=== PATIENT | female | born 1955 | race Caucasian/White ===

== ENCOUNTER 2025-01-27 08:00 | Outpatient (AMB) | payer OTHER, SELFPAY ==
--- NOTE | 2025-01-27 08:12 | A.OFFVIS_ITS ---
Intake Visit Reasons: urinary incontinence/nocturia/PVR Intake Note: New patient presents today for initial visit for urinary incontinnce/Nocturia Urology Medication:none Blood Thinner:none Antibiotic Allergies:Sulfa PVR:10ml Allergies adhesive tape Allergy (Mild, Verified 01/27/25 08:13) Agitated chromium Allergy (Mild, Verified 01/27/25 08:13) Agitated Sulfa (Sulfonamide Antibiotics) Allergy (Mild, Verified 01/27/25 08:13) Rash gadolinium containing agents Allergy (Mild, Uncoded 01/15/25 11:22) Agitated david Allergy (Mild, Uncoded 01/15/25 11:22) Agitated HPI Comments Details: 01/27/25--Elizabeth is a 69 year old female with complaints of urinary incontinence here as a new patient evaluation. The was seen last year by Urology group of [facility] and I received notes from their office. However the patient states that she was seen there on 1 visit and did not return because she had a less than optimal experience and was told that Dr. Garcia was retiring. She states that she has had symptoms of urinary incontinence for several years she feels that it runs in her family because her grandmother and mother also have this problem. She has had 2 C sections. She is currently not on any bladder medication and has not been on any in the past. She describes symptoms associated with urgency as well as coughing and stress. The patient is overweight (comorbidity for urinary incontinence) and states that she has 2 bad knees and this limits her ability to be active impacting her ability to lose weight. I have discussed further evaluation with urodynamics. I have discussed conditions that impact urinary incontinence to include but not limited to body habitus, aging, postmenopausal changes. She denies frequent UTIs. Results: Renal ultrasound report-05/22/2024 kidneys no nephrolithiasis or hydronephrosis postvoid bladder volume 0 mL Review of Systems Const All systems reviewed & are unremarkable except as noted in HPI and below Reports no additional complaints Eyes Reports no additional complaints ENT Reports no additional complaints Card Reports no additional complaints Resp Reports no additional complaints GI Reports no additional complaints Reports as per HPI Musc Reports no additional complaints Skin/Breast Reports system reviewed and no additional complaints, except as documented Neuro Reports no additional complaints Psych Reports no additional complaints Endo Reports no additional complaints Conner/Lymph Reports no additional complaints Aller/Immun Reports no additional complaints Physical Exam Const General: cooperative, healthy appearing and no acute distress Nutritional Appearance: overweight Orientation/consciousness: patient oriented x3 HEENT Head: Yes normal to inspection, Yes normocephalic and Yes atraumatic Eyes Conjunctivae: conjunctivae normal Neck Neck: Yes normal visual inspection and Yes trachea midline Chest Chest palpation & inspection: normal inspection of the chest Resp Effort & Inspection: normal respiratory effort GI Inspection: Yes normal to inspection Palpation (GI): Soft to palpation Neuro General: patient oriented x3 Psych Appearance: grossly normal Results Reviewed Results Reviewed: Renal ultrasound report-05/22/2024 kidneys no nephrolithiasis or hydronephrosis postvoid bladder volume 0 mL Assessment & Plan Assessment & Plan (1) Urinary incontinence: Code(s): R32 - Unspecified urinary incontinence Category: Medical (2) Urinary frequency: Code(s): R35.0 - Frequency of micturition Category: Medical Plan Schedule urodynamics Patient Instructions: The patient had an opportunity to ask questions regarding treatment plan. The patient expressed understanding and agreement with the above treatment plan. The patient is aware they should contact our office by phone for worsening of their current condition or the appearance of new symptoms. Compliance is encouraged with any medications and followup testing that is ordered. It is a privilege to be allowed the opportunity to participate in the urologic care of your patient. If you have any questions or concerns regarding treatment for the above conditions please do not hesitate to contact me. The office telephone contact is [phone]. This note is constructed in part using voice recognition software. While every effort has been made to ensure accuracy car park attendant errors may have been included. Yours sincerely, Rebeca Gilbert MD Coding Level of Care Code New Pt Level 4 (64789) Diagnoses Urinary incontinence R32 Urinary frequency R35.0
== END 2025-01-27 09:03 | disposition home or self-care (01) ==
LOC: HO.HUSH 08:01
PROVIDERS: PCP Urology; Visit Provider Urology
DX: R32 Unspecified urinary incontinence (principal); R35.0 Frequency of micturition; Z13.9 Encounter for screening, unspecified
CPT/HCPCS: 99204

== ENCOUNTER → 2025-01-27 08:00 | Outpatient (BNVA) | payer OTHER, SELFPAY | PROVIDERS: PCP Urology; Visit Provider Urology | DX: R32 Unspecified urinary incontinence (principal); R35.0 Frequency of micturition | CPT/HCPCS: 81003 ==

== ENCOUNTER 2025-03-21 09:24 | Outpatient (AMB) | payer OTHER, SELFPAY ==
--- NOTE | 2025-03-21 10:06 | MHC.OFFVIS ---
Intake Visit Reasons: UroD Allergies adhesive tape Allergy (Mild, Verified 01/27/25 08:13) Agitated chromium Allergy (Mild, Verified 01/27/25 08:13) Agitated Sulfa (Sulfonamide Antibiotics) Allergy (Mild, Verified 01/27/25 08:13) Rash gadolinium containing agents Allergy (Mild, Uncoded 01/15/25 11:22) Agitated david Allergy (Mild, Uncoded 01/15/25 11:22) Agitated Medication List - Last Reconciled 03/21/25 by Rebeca Gilbert MD vibegron (Gemtesa) 75 mg PO DAILY HPI Comments Details: 03/21/25-- History of Present Illness - The patient is a 69-year-old female presenting with bladder spasms and urinary incontinence. - She reports bladder spasms leading to urinary leakage as the bladder fills. - A family history of urinary issues is noted, involving her mother and grandmother. - An ultrasound from May 2024 indicated normal kidney function without stones. - The patient experiences significant leakage during long trips, necessitating extra clothing. Urinary Symptoms Review - Bladder spasms causing urinary leakage as the bladder fills with urine. - Significant urinary leakage during long trips, requiring extra clothing. - Attempts to manage symptoms by reducing fluid intake before long trips. Results - Ultrasound (May 2024): Normal kidney function, no stones or concerning findings. Discussion Notes I discussed with the patient that her bladder spasms are causing urinary leakage. We talked about starting with medication to relax the bladder and potentially using Botox injections if necessary. I advised her to reduce caffeine intake and to retrain her bladder by urinating by the clock. We will follow up in eight weeks to assess progress. Plan - Start Gemtesa for bladder spasms and urinary incontinence management. - Consider Botox injections if medication does not suffice. - Recommend reducing caffeine intake and bladder retraining by timed voiding. - Plan a follow-up call in eight weeks to assess progress. Patient Instructions - Take Gemtesa as prescribed once daily. - Reduce caffeine intake to help manage bladder spasms. - Practice bladder retraining by urinating every two hours, then increase to every three hours. - Expect a follow-up call in eight weeks to discuss how the treatment is working. Patient was informed and verbally consented to the use of an ambient scribe for clinic note documentation during this visit. 01/27/25--Elizabeth is a 69 year old female with complaints of urinary incontinence here as a new patient evaluation. The was seen last year by Urology group of [facility] and I received notes from their office. However the patient states that she was seen there on 1 visit and did not return because she had a less than optimal experience and was told that Dr. Garica was retiring. She states that she has had symptoms of urinary incontinence for several years she feels that it runs in her family because her grandmother and mother also have this problem. She has had 2 C sections. She is currently not on any bladder medication and has not been on any in the past. She describes symptoms associated with urgency as well as coughing and stress. The patient is overweight (comorbidity for urinary incontinence) and states that she has 2 bad knees and this limits her ability to be active impacting her ability to lose weight. I have discussed further evaluation with urodynamics. I have discussed conditions that impact urinary incontinence to include but not limited to body habitus, aging, postmenopausal changes. She denies frequent UTIs. Results: Renal ultrasound report-05/22/2024 kidneys no nephrolithiasis or hydronephrosis postvoid bladder volume 0 mL Review of Systems Const All systems reviewed & are unremarkable except as noted in HPI and below Reports no additional complaints Eyes Reports no additional complaints ENT Reports no additional complaints Card Reports no additional complaints Resp Reports no additional complaints GI Reports no additional complaints Reports as per HPI Musc Reports no additional complaints Skin/Breast Reports system reviewed and no additional complaints, except as documented Neuro Reports no additional complaints Psych Reports no additional complaints Endo Reports no additional complaints Conner/Lymph Reports no additional complaints Aller/Immun Reports no additional complaints Office Procedures Urodynamic Studies Consent Discussed risk and benefit or proposed procedure with the patient. Information consent for procedure given to the patient. Discussed technical aspects, risks, benefits and alternatives in full. Addressed all of the patient's questions and concerns regarding the procedure. The patient demonstrated knowledge and understanding. They wish to proceed with this procedure. Preparation The patient was prepped in the usual manner. A inclusion special education teacher was present and in the room. Genitalia was prepped with betadine solution in a sterile manner. Procedure Complex Uroflow Unable to void due to no urge Straight cath amount: 30 ml Cystometrogram ? Vaginal/rectal catheter type: Vaginal First sensation at (mL): 22mL First desire at (mL): 87 mL Strong desire to void occurred at (mL): 105 mL Strong desire detrusor pressure (cm H2O): 16 Maximum Capacity (mL): 106 mL Voiding Summary Voided with max detrusor pressure of (cm H2O): 46 Maximum flow rate (mL/second): 12 mL/s Voided volume (mL): ? 77ml Calculated PVR: 3 mL Stress Testing Unable to perform due to severe OAB. DO Dry: 87ml DO Wet:104ml Prep: The patient was prepped in the usual manner. A inclusion special education teacher was present and in the room. Genitalia was prepped with betadine solution in a sterile manner. 59215-Vgasxvoyhqnyip w/ DATA PROCESSING CONTROL CLERK 94275-Svunhek-Wwhojdaqkswt 36941-Vojm/Urinary Muscle Study 39915-Wtuhb-Hshuyuqnw Pressure Test Procedure code (CPT) selection complete Office Meds nitrofurantoin monohydrate/macrocrystals 100 mg capsule Performing Provider: Rebeca Gilbert MD [place] [facility] [place] [facility] Administered by: Audrey Vickers RN on 03/21/25 10:06 Dose Route Admin Location Dispensed Lot Number Expiration Date [employer] 100 mg PO 1 cap Results AMB Urinalysis, Automated UA Leukoctes 0 Liliane/uL Last Edit by Audrey Vickers RN on 03/21/25 10:28 UA Nitrite Negative Last Edit by Audrey Vickers RN on 03/21/25 10:28 UA Urobilinogen 3.5 mg/dL Last Edit by Audrey Vickers RN on 03/21/25 10:28 UA Protein 0 mg/dL Last Edit by Audrey Vickers RN on 03/21/25 10:28 UA pH 6.0 Last Edit by Audrey Vickers RN on 03/21/25 10:28 UA Blood 0 [place]/uL Last Edit by Audrey Vickers RN on 03/21/25 10:28 UA Specific [place] 1.0 Last Edit by Audrey Vickers RN on 03/21/25 10:28 UA Ketone Negative Last Edit by Audrey Vickers RN on 03/21/25 10:28 UA Bilirubin 0 mg/dL Last Edit by Audrey Vickers RN on 03/21/25 10:28 UA Glucose 15 mg/dL Last Edit by Audrey Vickers RN on 03/21/25 10:28 Assessment & Plan Assessment & Plan Orders: Orders AMB Urinalysis Automated Today Z13.9 - Encounter for screening, unspecified AMB Urodynamics Studies Today R32 - Unspecified urinary incontinence Medications: New vibegron (Gemtesa) 75 mg PO DAILY 90 tabs 2RF Coding CPT Codes Urodynamic Studies - CPT: 46114-Uxsbwgknexdpwk w/ DATA PROCESSING CONTROL CLERK ([id number]) Urodynamic Studies - CPT: 74841-Lvyhofl-Jcfivgxujkmh ([id number]) Urodynamic Studies - CPT: 47693-Wexh/Urinary Muscle Study ([id number]) Urodynamic Studies - CPT: 55266-Wpqcg-Ckbdiimic Pressure Test ([id number])
== END 2025-03-21 10:47 | disposition home or self-care (01) ==
LOC: HO.HUSH 09:24
PROVIDERS: PCP Urology; Visit Provider Urology
DX: Z13.9 Encounter for screening, unspecified (principal); R32 Unspecified urinary incontinence
CPT/HCPCS: 51728; 51741; 51784; 51797

== ENCOUNTER → 2025-03-21 09:24 | Outpatient (BNVA) | payer OTHER, SELFPAY | PROVIDERS: PCP Urology; Visit Provider Urology | DX: R32 Unspecified urinary incontinence (principal) | CPT/HCPCS: 51728; 51741; 51784; 51797; 81003 ==

== ENCOUNTER 2025-05-29 09:17 | Outpatient (AMB) | payer OTHER, SELFPAY ==
--- NOTE | 2025-05-29 09:17 | MHC.OFFVIS ---
Intake Visit Reasons: 10W F/U Intake Note: patient presents today for initial visit for: 10w follow up Urology Medication: gemtesa Antibiotic Allergies:Sulfa Strip Presser Required: No Accompanied by: Self / Same As Patient Allergies adhesive tape Allergy (Mild, Verified 05/29/25 09:18) Agitated chromium Allergy (Mild, Verified 05/29/25 09:18) Agitated Sulfa (Sulfonamide Antibiotics) Allergy (Mild, Verified 05/29/25 09:18) Rash gadolinium containing agents Allergy (Mild, Uncoded 05/29/25 09:18) Agitated david Allergy (Mild, Uncoded 05/29/25 09:18) Agitated Medication List - Last Reconciled 05/29/25 by Rebeca Gilbert MD trospium ER 60 mg PO DAILY vibegron (Gemtesa) 75 mg PO DAILY HPI Comments Details: 05/29/2025--telehealth follow-up video attempted. The patient states that she has noticed less urinary leakage and urgency on the Gemtesa. She feels like she does will during the 1st half of the day after taking the Gemtesa but in the evening and during the night she again has urge incontinence in what is her clothes. She denies any dysuria. I have discussed adding an anticholinergic to the Gemtesa versus bladder Botox injection. The patient agrees to trial additional medication in the evening.. Gemtesa 75 mg in the morning. Trospium 60 mg after 16:00. The patient is to call if difficulty urinating follow-up with nurses to check bladder scan PVR. 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 Gemtesa 75 mg prescribed - The patient is a 69-year-old female presenting with bladder spasms and urinary incontinence. - She reports bladder spasms leading to urinary leakage as the bladder fills. - A family history of urinary issues is noted, involving her mother and grandmother. - An ultrasound from May 2024 indicated normal kidney function without stones. - The patient experiences significant leakage during long trips, necessitating extra clothing. Urinary Symptoms Review - Bladder spasms causing urinary leakage as the bladder fills with urine. - Significant urinary leakage during long trips, requiring extra clothing. - Attempts to manage symptoms by reducing fluid intake before long trips. Results - Ultrasound (May 2024): Normal kidney function, no stones or concerning findings. 01/27/25--Elizabeth is a 69 year old female with complaints of urinary incontinence here as a new patient evaluation. The was seen last year by Urology group of [facility] and I received notes from their office. However the patient states that she was seen there on 1 visit and did not return because she had a less than optimal experience and was told that Dr. Garcia was retiring. She states that she has had symptoms of urinary incontinence for several years she feels that it runs in her family because her grandmother and mother also have this problem. She has had 2 C sections. She is currently not on any bladder medication and has not been on any in the past. She describes symptoms associated with urgency as well as coughing and stress. The patient is overweight (comorbidity for urinary incontinence) and states that she has 2 bad knees and this limits her ability to be active impacting her ability to lose weight. I have discussed further evaluation with urodynamics. I have discussed conditions that impact urinary incontinence to include but not limited to body habitus, aging, postmenopausal changes. She denies frequent UTIs. Results: Renal ultrasound report-05/22/2024 kidneys no nephrolithiasis or hydronephrosis postvoid bladder volume 0 mL Review of Systems Const All systems reviewed & are unremarkable except as noted in HPI and below Reports no additional complaints Eyes Reports no additional complaints ENT Reports no additional complaints Card Reports no additional complaints Resp Reports no additional complaints GI Reports no additional complaints Reports as per HPI Musc Reports no additional complaints Skin/Breast Reports system reviewed and no additional complaints, except as documented Neuro Reports no additional complaints Psych Reports no additional complaints Endo Reports no additional complaints Conner/Lymph Reports no additional complaints Aller/Immun Reports no additional complaints Telehealth Telehealth [facility]health [facility] Location of provider rendering services: practice address Location of patient: address on file Patient Identification confirmed using: Name, : Yes Telehealth method: voice only Patient verbally consented to treatment: Yes Patient verbally consented to billing insurance company: Yes Patient informed of any privacy concerns related to visit: Yes Minutes spent on Phone/Video with Pt.: 14 Assessment & Plan Assessment & Plan (1) Urinary incontinence: Code(s): R32 - Unspecified urinary incontinence Category: Medical (2) OAB (overactive bladder): Code(s): N32.81 - Overactive bladder Category: Medical Plan I have discussed adding an anticholinergic to the Gemtesa versus bladder Botox injection. The patient agrees to trial additional medication in the evening.. Gemtesa 75 mg in the morning. Trospium 60 mg after 16:00. The patient is to call if difficulty urinating follow-up with nurses to check bladder scan PVR. Medications: New trospium ER Administer Daily after 4 pm, must be taken on empty stomach at least 1 hour before a meal/food with water only 60 mg PO DAILY 30 caps 2RF Patient Instructions: The patient had an opportunity to ask questions regarding treatment plan. The patient expressed understanding and agreement with the above treatment plan. The patient is aware they should contact our office by phone for worsening of their current condition or the appearance of new symptoms. Compliance is encouraged with any medications and followup testing that is ordered. It is a privilege to be allowed the opportunity to participate in the urologic care of your patient. If you have any questions or concerns regarding treatment for the above conditions please do not hesitate to contact me. The office telephone contact is [phone]. This note is constructed in part using voice recognition software. While every effort has been made to ensure accuracy dressing room porter errors may have been included. Yours sincerely, Rebeca Gilbert MD Coding Level of Care Code Tele Est Pt Level 4 (07579) Diagnoses Urinary incontinence R32 OAB (overactive bladder) N32.81
--- OUTSIDE RECORDS SUMMARY | 2025-05-29 10:17 | XMS_ITS | Clinical Summary ---
[place] [address] Care Team Providers Care Test Department Helper Name Role Phone Srikanth Murphy MD Primary Care Provider [phone] Allergies Active Allergy Reactions Criticality Noted Date Comments Sulfa (Sulfonamide Antibiotics) High 04/23/2012 Patient states almost Medications No known medications Active Problems Problem Noted Date Diagnosed Date Sensorineural hearing loss 04/23/2012 Social History Tobacco Use Types Packs/Day Years Used Date Smoking Tobacco: Never Comments Unknown Sex and Gender Information Value Date Recorded Sex Assigned at Not on file Legal Sex Female 7:31 AM EST Gender Identity Not on file Sexual Orientation Not on file Last Filed Vital Signs Vital Sign Reading Time Taken Comments Blood Pressure 146/83 04/23/2012 11:07 AM EDT Pulse 62 04/23/2012 11:07 AM EDT Temperature - - Respiratory Rate - - Oxygen Saturation - - Inhaled Oxygen Concentration - - Weight 108.9 kg (240 lb) 04/23/2012 11:07 AM EDT Height 157.5 cm (5' 2 ) 04/23/2012 11:07 AM EDT Body Mass Index 43.9 04/23/2012 11:07 AM EDT Plan of Treatment Health Maintenance Due Date Last Done Comments CT Colonography 1956 Colonoscopy 1956 Colorectal Cancer Screening 1956 FIT DNA 1956 FIT 1956 Sigmoidoscopy (10 year) with FIT yearly 1956 Sigmoidoscopy 1956 Hepatitis C Screening 1974 Tetanus/Diphtheria/Pertussis Vaccines (1 - Tdap) 12/17 Breast Cancer Share Decision Needed 1996 Breast Cancer screening 1996 Pneumoccocal Vaccine: 50+ (1 of 1 - PCV) 2006 Zoster vaccine (1 of 2) 2006 Advance Directive 12/18/2011 Bone Density Scan 2021 Covid-19 Vaccine (1 - 2023- season) 2024 Influenza (Flu) vaccine (1 o f 1 - Influenza standard series) 06/02/2025 Care Teams Test Department Helper Relationship Specialty Start Date End Date Srikanth Murphy MD [address] [place] [address] PCP - General 01/04/12
== END 2025-05-29 10:20 | disposition home or self-care (01) ==
LOC: HO.HUSH 09:17
PROVIDERS: PCP Urology; Visit Provider Urology
DX: R32 Unspecified urinary incontinence (principal); N32.81 Overactive bladder
CPT/HCPCS: 98013